=== PATIENT | male | born 1990 | race Caucasian/White ===

== ENCOUNTER 2016-11-23 05:54 | Emergency (ER) | payer BC, OTHER ==
[2016-11-23 06:02] VITALS: RESP 18
--- NOTE | 2016-11-23 06:46 | EDPHY ---
H & P Stated Complaint: possible withdrawal? states "here for bloodwork for warrant" Source: Patient Exam Limitations: No limitations - Personal History Current Tetanus/Diphtheria Vaccine: Unsure Current Tetanus Diphtheria and Acellular Pertussis (TDAP): Unsure - Medical/Surgical History Hx Asthma: No Hx Chronic Respiratory Disease: No Hx Diabetes: No Hx Cardiac Disease: No Hx Renal Disease: No Hx Cirrhosis: No Hx Alcoholism: No Hx HIV/AIDS: No Hx Splenectomy or Spleen Trauma: No Other PMH: PMH: anxiety. PSH: colostomy reversal - Family History Significant Family History: No pertinent family hx - Social History Smoking Status: Never smoked Alcohol Use: Sober Drug Use: None Time Seen by Provider: 11/23/16 06:13 HPI/ROS: CHIEF COMPLAINT: Psychosis HISTORY OF PRESENT ILLNESS: The patient is a 26-year-old man whose mom brings him to the emergency department for paranoid hallucinations. She states that for the last 2 days he has been acting paranoid and picking things out of the air and peaking out of windows and being very jumpy. He has a long history of polysubstance abuse and has been through therapy several times and rehab. He recently had a colostomy takedown after a rectal trauma several months ago. He had been recovering well and was living with mom. 2 days ago he went to stay with his girlfriend and she called mom at 4 o'clock in the morning stating that he was acting paranoid and strange. Mom took him to [facility] yesterday for altered mental status and he was diagnosed with cocaine use and marijuana use. They evaluated his postoperative wound and did lab work that was otherwise unremarkable. Mom states however that his symptoms have continued. He has not had a fever. He has not had any trauma. The patient states that he is here to get drug tested for a warrant. He also asked that his mom be stricken from his medical record. He denies having any abdominal pain. He has been eating and having bowel movements without difficulty. REVIEW OF SYSTEMS: Constitutional: denies: chills, fever, recent illness, recent injury EENTM: denies: blurred vision, double vision, nose congestion Respiratory: denies: cough, shortness of breath Cardiac: denies: chest pain, irregular heart rate, lightheadedness, palpitations Gastrointestinal/Abdominal: denies: abdominal pain, diarrhea, nausea, vomiting, blood streaked stools Genitourinary: denies: dysuria, frequency, hematuria, pain Musculoskeletal: denies: joint pain, muscle pain Skin: denies: lesions, rash, jaundice, bruising Neurological: denies: headache, numbness, paresthesia, tingling, dizziness, weakness Hematologic/Lymphatic: denies: blood clots, easy bleeding, easy bruising Immunologic/allergic: denies: HIV/AIDS, transplant EXAM: GENERAL: Well-appearing, well-nourished and in no acute distress. HEAD: Atraumatic, normocephalic. EYES: Pupils equal round and reactive to light, extraocular movements intact, sclera anicteric, conjunctiva are normal. ENT: TMs normal, nares patent, oropharynx clear without exudates. Moist mucous membranes. NECK: Normal range of motion, supple without lymphadenopathy or JVD. LUNGS: Breath sounds clear to auscultation bilaterally and equal. No wheezes rales or rhonchi. HEART: Regular rate and rhythm without murmurs, rubs or gallops. ABDOMEN: Partially closed wound, minimal erythema, minimal drainage, soft, nontender, normoactive bowel sounds. No guarding, no rebound. No masses appreciated. BACK: No CVA tenderness, no spinal tenderness, step-offs or deformities EXTREMITIES: Normal range of motion, no pitting or edema. No clubbing or cyanosis. NEUROLOGICAL: Cranial nerves II through XII grossly intact. Normal speech, normal gait. 5/5 strength, normal movement in all extremities, normal sensation PSYCH: Normal mood, normal affect. SKIN: Warm, dry, normal turgor, no visible rashes or lesions. (Jaswinder Kwon) Constitutional: Initial Vital Signs Temperature (C) 37.1 C 11/23/16 05:58 Heart Rate 108 H 11/23/16 05:58 Respiratory Rate 18 11/23/16 05:58 Blood Pressure 138/95 H 11/23/16 05:58 O2 Sat (%) 95 11/23/16 05:58 O2 Delivery Mode Room Air Allergies/Adverse Reactions: No Known Allergies Allergy (Unverified 11/23/16 05:58) Home Medications: Medication Instructions Recorded Ativan 11/23/16 Medical Decision Making ED Course/Re-evaluation: Care assumed at 7:00 a.m.. The patient is on a mental health hold by Dr. Kwon for psychotic behavior. Plan for screening labs followed by a psychiatric evaluation. The patient had a medical screening evaluation performed. Tox screen positive for benzodiazepines and cocaine and marijuana but not for methamphetamine. There does not appear to be an acute emergent medical or surgical condition which would preclude psychiatric evaluation at this time. Mental health evaluation is requested at [phone]: Patient was seen and evaluated by mental health and is felt to not be criteria for mental health hold. His presentation is likely explained by polysubstance abuse. Dr. Goran Glass vacated the hold and the patient will be discharged with outpatient resource follow-up. (Jose Ricketts) After speaking with the mom the patient clearly is gravely disabled. This may be from substance abuse versus new onset psychosis. I will place him on a hold and obtain lab work and mental health evaluation. 6:45 a.m. care transferred to Dr. Jose Ricketts. (Jaswinder Kwon) Differential Diagnosis: Partial list of the Differential diagnosis considered include but were not limited to; psychosis, substance abuse and although unlikely based on the history and physical exam, I also considered infection, encephalopathy, stroke, seizure. (Jaswinder Kwon) - Data Points Laboratory Results: Laboratory Results 11/23/16 06:41 11/23/16 06:41 Departure - Departure Disposition: Home, Routine, Self-Care Clinical Impression: Polysubstance abuse Psychotic disorder Qualifiers: Psychosis type: unspecified psychosis type Qualifier Code: (F29) Unspecified psychosis not due to a substance or known physiological condition Condition: Fair Instructions: Polysubstance Abuse (ED) Referrals: Priscilla Carmona MD [Medical Doctor] - As per Instructions IN STATE,. [Primary Care Provider] - As per Instructions
[2016-11-23 07:00] LABS: % IMMATURE GRANULYOCYTES 0.3 % (0.0-1.1); ABSOLUTE IMMATURE GRANULOCYTES 0.02 10^3/uL (0.00-0.10); ADD DIFF? NO; ADD MORPH? NO; ADD SCAN? NO; ATYPICAL LYMPHOCYTE FLAG 30 (0-99); FRAGMENT RBC FLAG 0 (0-99); HEMATOCRIT 38.1 % (40.0-51.0); HEMOGLOBIN 13.6 g/dL (13.7-17.5); LEFT SHIFT FLG 0 (0-99); LIPEMIA HEMOLYSIS FLAG 90 (0-99); MEAN CELL HEMOGLOBIN 33.4 pg (27.9-34.1); MEAN CELL HEMOGLOBIN CONCENTR. 35.7 g/dL (32.4-36.7); MEAN CELL VOLUME 93.6 fL (81.5-99.8); MEAN PLATELET VOLUME 10.2 fL (8.7-11.7); PLATELET CLUMPS FLAG 0 (0-99); PLATELET COUNT 260 10^3/uL (150-400); RED BLOOD CELL COUNT 4.07 10^6/uL (4.40-6.38); RED CELL DISTRIBUTION WIDTH 12.7 % (11.5-15.2)
[2016-11-23 07:27] LABS: ANION GAP 13 mEq/L (8-16); CALCIUM 9.2 mg/dL (8.5-10.4); CARBON DIOXIDE 23 mEq/l (22-31); CHLORIDE 106 mEq/L (97-110); CREATININE 0.9 mg/dL (0.7-1.3); ETHANOL SERUM < 10 mg/dL (0-10); GLOMERULAR FILTRATION RATE > 60; GLUCOSE 98 mg/dL (70-100); POTASSIUM 3.9 mEq/L (3.5-5.2); SODIUM 142 mEq/L (134-144)
[2016-11-23 09:40] VITALS: BP 133/97; PULSE 96; TEMP 98.2; O2SAT 97
== END 2016-11-23 09:41 | disposition home or self-care (01) ==
LOC: EEVIPCON 05:54
DX: F29 Unspecified psychosis not due to a substance or known physiological condition (principal); F19.10 Other psychoactive substance abuse, uncomplicated
CPT/HCPCS: 80305; G0480

== ENCOUNTER 2017-07-30 10:38 | Emergency (ER) | payer BC ==
[2017-07-30 10:47] VITALS: RESP 16; TEMP 98.6
--- NOTE | 2017-07-30 11:11 | EDPHY ---
General - History Smoking Status: Never smoked Narrative: CHIEF COMPLAINT: Left shoulder pain, seizures HISTORY OF PRESENT ILLNESS: Patient complains of left shoulder pain status post seizure yesterday. This is the 3rd seizure he has had since April. He says he was in his kitchen when he had a seizure and fell to the ground. He thinks he struck his teeth on the [place] countertop. His girlfriend was with him He does not recall any other information from this. Since then he has had left shoulder pain and feels that he may have located shoulder. He has no numbness or tingling distally in the left arm. He has done this in the past with previous seizures and required labral surgery repair. He has significant pain with abduction and elevation of the shoulder. He has no headache. He does have dental pain. No neck pain. No chest or back pain. No abdominal pain. No lower extremity complaints. No other associated complaints or modifying factors. He is currently in the process of being referred to a neurologist due to 3rd seizure. REVIEW OF SYSTEMS: Ten systems reviewed and are negative unless otherwise noted in the HPI PCP: AUDIE Ludwig SPECIALISTS: Dr. Castaneda PAST MEDICAL HISTORY: Seizures, shoulder injury PAST SURGICAL HISTORY: Left shoulder reconstruction SOCIAL HISTORY: Nonsmoker. Occasional alcohol. Occasional cocaine user. Previously addicted to opiates FAMILY HISTORY: Noncontributory EXAMINATION General Appearance: Alert, no distress Head: normocephalic, atraumatic. No [place] sign. No raccoon eyes. Eyes: Pupils equal and round, no conjunctival pallor or injection ENT, Mouth: Mucous membranes moist. Partially fractured teeth on the maxillary ridge, central and lateral incisors. No bleeding. No abscess. No laceration of the mucosa. Neck: Normal inspection, supple, non-tender. No crepitus, step-off or deformity. Respiratory: Lungs are clear to auscultation. No wheezing rhonchi or crackles Cardiovascular: Regular rate and rhythm. No murmur. Pulses intact distally Gastrointestinal: Abdomen is soft and nontender Back: non-tender, no bony abnormalities Neurological: Cranial nerves 2-12 grossly intact. GCS 15. A&O, nonfocal, normal gait strength is symmetric in all 4 limbs. Skin: Warm and dry, no rash. No petechiae or purpura Extremities: Tenderness of the left shoulder girdle. There is no point tenderness. No step-off or obvious dislocation. Range of motion is limited due to pain but he is able to abduct, adduct, flex and extend the shoulder. Range of motion of the left elbow and wrist are fully intact. There is no wrist drop. Psychiatric: Mood and affect normal DIFFERENTIAL DIAGNOSES: Including but not limited to subluxation, dislocation, strain, sprain, contusion , fracture, seizure MDM: 11:11 a.m. Left shoulder pain status post seizure yesterday. By clinical examination I do not appreciate dislocation. X-ray is currently being taken. He is neurovascular intact and in no acute distress. 11:30 a.m. X-ray as interpreted by me does not reveal any evidence of fracture dislocation. 11:50 a.m. Case discussed with neurologist Dr. Nowak. We discussed starting the patient on Keppra 500 mg once daily 5 days and transition to twice daily. He said that he would be happy to see the patient or that the patient may follow up with his primary care physician 12:20 p.m. I discussed this plan with the patient and his mother bedside. She is very happy to hear that he will be on Keppra. We discussed not driving for 90 days. We discussed follow up with either Dr. Nowak or the neurologist that the primary care physician is referring him for. We discussed ED precautions for any subsequent seizures. We discussed weight-bearing as tolerated the left shoulder. He has a sling from previous incidents surgery. He is neurovascular intact. He is awake and alert and conversing appropriately. His mother will drive him home. He is discharged in stable condition. (Ozzie Grace) Discussion: I did not see this patient while he was in the emergency department. However his care was discussed with the PA while the patient was in the department. I agree with treatment plan and management (Jaleel Brar) - Objective Vital Signs: Initial Vital Signs Temperature (C) 37.0 C 07/30/17 10:43 Heart Rate 87 07/30/17 10:43 Respiratory Rate 16 07/30/17 10:43 Blood Pressure 140/92 H 07/30/17 10:43 O2 Sat (%) 97 07/30/17 10:43 O2 Delivery Mode Room Air Allergies/Adverse Reactions: No Known Allergies Allergy (Unverified 11/23/16 05:58) Home Medications: Medication Instructions Recorded levETIRAcetam [Keppra 500 mg (*)] 500 mg PO AD #50 tab 07/30/17 Medications Given: Discontinued Medications Levetiracetam (Keppra) 500 mg PO EDNOW ONE Stop: 07/30/17 11:43 Last Admin: 07/30/17 11:57 Dose: 500 mg Departure - Departure Disposition: Home, Routine, Self-Care Clinical Impression: Recurrent seizures Sprain of shoulder, left Qualifiers: Encounter type: initial encounter Shoulder sprain type: unspecified sprain Qualified Code(s): S43.402A - Unspecified sprain of left shoulder joint, initial encounter Tooth fracture Qualifiers: Encounter type: initial encounter Fracture type: closed Qualified Code(s): S02.5XXA - Fracture of tooth (traumatic), initial encounter for closed fracture Condition: Good Instructions: Shoulder Sprain (ED), Recurrent Seizures in Adults (ED), Driving Restrictions (ED) Additional Instructions: 1. Medications as prescribed 2. Driving restrictions as discussed 3. ER precautions as discussed Referrals: KIMBERLY SMITH PA-C [Other] - As per Instructions Andrés Nowak MD [Medical Doctor] - As per Instructions Jaime Castaneda MD [Medical Doctor] - As per Instructions Prescriptions: levETIRAcetam [Keppra 500 mg (*)] 500 mg PO AD #50 tab
[2017-07-30] MEDS ORDERED: levETIRAcetam 500 MG TAB PO ONE (11:42)
[2017-07-30 11:59] VITALS: BP 135/90; PULSE 84; O2SAT 96
== END 2017-07-30 12:28 | disposition home or self-care (01) ==
DX: S43.402A Unspecified sprain of left shoulder joint, initial encounter (principal); S02.5XXA Fracture of tooth (traumatic), initial encounter for closed fracture; G40.909 Epilepsy, unspecified, not intractable, without status epilepticus; W18.39XA Other fall on same level, initial encounter; Y92.000 Kitchen of unspecified non-institutional (private) residence as the place of occurrence of the external cause